=== PATIENT | female | born 1955 | race Two or more races ===

== ENCOUNTER 2016-10-30 18:59 | Emergency (ER) | payer OTHER ==
[~2016-10-30] VITALS: Ht 149.9 cm; Wt 50.8 kg
[2016-10-30 19:13] VITALS: BP 156/81
[2016-10-30] MEDS ORDERED: Tylenol #3 tab (300mg/30mg) ORAL ONE (19:30)
[2016-10-30] MEDS ORDERED: ACETAMINOPHEN-1 EAC1 ORAL (19:55)
[2016-10-30 20:00] VITALS: BP 156/81
--- NOTE | 2016-10-30 21:05 | Emergency Room Report ---
History of Present Illness General Chief Complaint: Pain Source: Patient Present Illness HPI 61-year-old female presents to ED complaining of left chest wall pain. States a days ago she had a mechanical trip and fall and landed forward on her chest. Denies hitting her head or LOC. Patient was continued pain over the chest since the fall. Pain is 9/10, sharp, nonradiating. Worse with deep breaths. Denies any shortness of breath. Denies any other injuries. No other aggravating relieving factors. Denies any other associated symptoms Allergies: Coded Allergies: No Known Allergies (Unverified , 10/30/16) Patient History Past Medical History: none Past Surgical History: none Pertinent Family History: none Social History: Denies: smoking, alcohol use, drug use Now: No Immunizations: UTD Reviewed Nursing Documentation: PMH: Agreed, PSxH: Agreed Nursing Documentation-PMH Past Medical History: No History, Except For Review of Systems All Other Systems: negative except mentioned in HPI Physical Exam Vital Signs Date Time Temp Pulse Resp B/P (MAP) Pulse Ox O2 Delivery O2 Flow Rate FiO2 10/30/16 19:03 97.9 61 16 156/81 97 Room Air Sp02 EP Interpretation: reviewed, normal General Appearance: no apparent distress, alert, GCS 15, non-toxic Head: normocephalic Eyes: bilateral eye normal inspection, bilateral eye PERRL ENT: normal ENT inspection Neck: normal inspection Respiratory: lungs clear, normal breath sounds, speaking full sentences, other - L sided chest wall pain Cardiovascular #1: regular rate, rhythm, no edema Gastrointestinal: normal inspection Rectal: deferred Genitourinary: no CVA tenderness Musculoskeletal: normal inspection Neurologic: alert, oriented x3, responsive, motor strength/tone normal, sensory intact, speech normal Psychiatric: normal inspection Skin: normal inspection Lymphatic: normal inspection Medical Decision Making Diagnostic Impression: Primary Impression: Contusion of rib Qualified Codes: S20.212A - Contusion of left front wall of thorax, initial encounter ER Course Hospital Course 61-year-old F presents to ED complaining of L sided chest wall pain s/p fall Differential diagnoses include: Fracture, contusion, PTX Clinical course Patient placed on stretcher. After initial history and physical, I ordered pain medications and CT Chest CT Chest shows no PTX, no rib fx. discussed findings with the patient. On reassessment pain is improved Diagnosis - rib contusion Stable and discharged to home with prescription for Tylenol #3. apply ice. weight bear as tolerated. Followup with PMD. Return to ED if symptoms recur or worsen CT/MRI/US Diagnostic Results CT/MRI/US Diagnostic Results : Imaging Test Ordered: CT Chest Impression no rib fx, no PTX Last Vital Signs Date Time Temp Pulse Resp B/P (MAP) Pulse Ox O2 Delivery O2 Flow Rate FiO2 10/30/16 19:03 97.9 61 16 156/81 97 Room Air Status: improved Disposition: HOME, SELF-CARE Condition: Stable Scripts Acetaminophen With Codeine (T#3) (TYLENOL #3 TAB*) Y Tab 1 TAB ORAL Q8H Y for For Pain, #20 TAB Prov: ROSSANA GARCIA M.D. 10/30/16 Patient Instructions: Rib Contusion ROSSANA GRACIA M.D. Oct 30, 2016 21:05
--- NOTE | 2016-10-31 10:36 | Diagnostic Imaging Report ---
Indication: Chest pain. Trauma Technique: Continuous helical transaxial imaging of the chest was obtained from the thoracic inlet to the upper abdomen. No intravenous contrast was administered. Coronal 2-D reformats were also obtained. Total Dose length Product (DLP): [address] Dose Index Volume (CTDIvol): 16.65, 0.15 mGy Comparison: none Findings: Lungs are essentially clear. No pneumothorax or pleural effusion identified. There is minimal atelectasis at the lung bases. Mediastinum is clear. There is very mild calcification of aorta noted. Heart is unremarkable. Visualized upper abdomen is unremarkable. Osseous structures are unremarkable. There is no obvious fracture. Impression: No acute findings The CT scanner at [facility] is accredited by the [employer] and the scans are performed using dose optimization techniques as appropriate to a performed exam including Automatic Exposure control.
== END 2016-10-30 20:00 | disposition home or self-care (01) ==
LOC: EMR 19:41
DX: S20.212A Contusion of left front wall of thorax, initial encounter (principal); W01.0XXA Fall on same level from slipping, tripping and stumbling without subsequent striking against object, initial encounter; Y93.9 Activity, unspecified; Y92.9 Unspecified place or not applicable
CPT/HCPCS: 71250; 99284